=== PATIENT | male | born 1955 ===

== ENCOUNTER 2017-03-22 07:05 | Day surgery (SDC) | payer MEDICAID ==
[2017-03-20 08:49] VITALS: BMI 21.7
[2017-03-22] MEDS ORDERED: Propofol 10 mg/ml Inj (20 ML) ONE (07:58)
[2017-03-22] MEDS ORDERED: Sodium Chloride 0.9% 1,000 ML IV SCH (08:30)
[2017-03-22 08:57] VITALS: O2SAT 99
[2017-03-22 09:25] VITALS: BP 120/55; PULSE 62; RESP 18; TEMP 98.2
== END 2017-03-22 09:45 | disposition home or self-care (01) ==
LOC: ENDO 07:05
PROVIDERS: ATTEND Internal Medicine Gastroenterology
DX: Z12.11 Encounter for screening for malignant neoplasm of colon (principal); K64.8 Other hemorrhoids
CPT/HCPCS: 45378; J2704; J7040 ×2